=== PATIENT | male | born 1995 | race Caucasian/White ===

== ENCOUNTER 2020-02-28 09:43 | Day surgery (SDC) | payer OTHER ==
[~2020-02-28] VITALS: Ht 170.2 cm; Wt 97.5 kg
[~2020-02-28 09:43] MED LIST: BUPIVACAINE HCL 0.5% 30 ML VIAL As Ordered ONE; LIDOCAINE 1% SDV 30ML VIAL As Ordered ONE; LR 1,000 ML IV ONE; ceFAZolin SOD 2 GM in IV 1 EA IV ONE; dexameTHASONE 4 MG/ML 1ML VIAL (J1100 PER 1MG) As Ordered ONE
[2020-02-28] MEDS ORDERED: ceFAZolin 2 GM/D5W 50 ML IV BAG (J0690 PER 500MG) As Ordered ONE (10:30)
[2020-02-28] MEDS ORDERED: fentaNYL 100 MCG/2 ML INJECTION (J3010) As Ordered ONE ×2 (10:59→14:16)
[2020-02-28] MEDS ORDERED: MIDAZOLAM INJ 2MG/2ML VIAL (J2250 PER 1MG) As Ordered ONE (10:59)
[2020-02-28] MEDS ORDERED: propofoL 200 MG/20 ML VIAL As Ordered ONE ×4 (11:00→14:31)
[2020-02-28] MEDS ORDERED: LIDOCAINE 2% 100MG/5ML SDV (FOR ANES.) As Ordered ONE (11:00)
[2020-02-28] MEDS ORDERED: ePHEDrine SULFATE 25 MG/5 ML(5MG/ML) SYRINGE As Ordered ONE ×2 (11:20→11:34)
[2020-02-28] MEDS ORDERED: PHENYLephrine HCL 500 MCG/5 ML (100MCG/ML) SYRINGE (J2370) As Ordered ONE (13:19)
[2020-02-28] MEDS ORDERED: LR 1,000 ML IV SCH (15:30)
[2020-02-28] MEDS ORDERED: ONDANSETRON 4MG/2ML VIAL IV PRN (15:30)
[2020-02-28] MEDS: oxyCODONE 5MG TAB PO PRN ×2 (15:37→16:09)
[2020-02-28 17:30] VITALS: BP 129/83
--- NOTE | 2020-03-11 15:21 | RO ---
DATE OF SURGERY: 02/28/2020 SURGEON: Aureliano Mckeon DPM PRODUCT INFO SPECIALIST: None. PREOPERATIVE DIAGNOSIS: Right foot painful accessory bone. POSTOPERATIVE DIAGNOSIS: Right foot painful accessory bone. PROCEDURE: Right foot accessory bone excision. ANESTHESIA: Monitored anesthesia care. PREOPERATIVE INJECTION: 20 cc of a one-to-one mixture of 1% lidocaine plain and 0.5% Marcaine plain. ESTIMATED BLOOD LOSS: Minimal. MATERIALS: 3-0 Vicryl, 4-0 nylon. INJECTABLES: 1 mL Decadron 4 mg/mL. COMPLICATIONS: None. CONDITION: Stable. INDICATIONS: Bib Perrin is a 24-year-old male who has painful bone to his right ankle. He has pain along the inside of his ankle. He had x-ray findings and clinical findings suggestive of painful os trigonum. The decision was made to bring him to the operating room for excision of painful accessory bone. The patient's side and site were identified and marked in the pre-operative holding area. Consent was reviewed and obtained. All risks, complications, and alternatives to the procedure were explained to the patient in detail and all questions were answered. PROCEDURE: The patient was brought to the operating room and placed on the operating room table in the supine position. Monitored anesthesia care was delivered by the anesthesia team. Preoperative injection of 20 mL of a one-to-one mixture of 1% lidocaine plain and 0.5% Marcaine plain were injected in the right foot. The right foot was prepped and draped in normal sterile fashion. A tourniquet was applied to the right ankle and inflated at 225 mmHg. A medial incision was made along the medial aspect of the right ankle. Dissection was carried until the flexor retinaculum was identified. This was transected, exposing the tarsal canal. An incision was made over the channel for the flexor hallucis longus. The longus was inspected and was found to be free of tears or other overt pathology. The FHL tendon was retracted and the os trigonum was noted posterior to the talus. This was dissected free using tenotomy scissors. This was sent for pathology. The site was irrigated with normal saline. Deep closure was performed with 3-0 Vicryl and skin closure with 4-0 nylon. Tourniquet was deflated. Sterile dressings were applied. The patient was brought to the PACU with vital signs stable and neurovascular status intact. He will be partial weightbearing and will follow up in the office in two days. JEFF
== END 2020-02-28 17:42 | disposition home or self-care (01) ==
LOC: M SDC 09:43
PROVIDERS: ATTEND Podiatrist Foot & Ankle Surgery
DX: M89.8X7 Other specified disorders of bone, ankle and foot (principal); M25.571 Pain in right ankle and joints of right foot; G43.909 Migraine, unspecified, not intractable, without status migrainosus
CPT/HCPCS: 28120; 88300; J0690; J1100; J2250; J2370; J3010